=== PATIENT | female | born 1965 | race Caucasian/White ===

== ENCOUNTER → 2016-12-11 | Outpatient (CLI) | payer BC | LOC: MRI 12:17 | DX: Z01.812 Encounter for preprocedural laboratory examination (principal); H49.00 Third [oculomotor] nerve palsy, unspecified eye | CPT/HCPCS: 36415; 70553; 82565; 84520; A9577 ==

== ENCOUNTER → 2016-12-13 | Outpatient (CLI) | payer BC | LOC: CT 09:00 | DX: H49.00 Third [oculomotor] nerve palsy, unspecified eye (principal) | CPT/HCPCS: 70496; J7050; Q9963 ==

== ENCOUNTER → 2017-03-20 | Outpatient (CLI) | payer BC ==
[2017-03-20 11:10] LABS: BUN/CREATININE RATIO 25 (0-10)
== END ==
LOC: LAB 10:05
PROVIDERS: Family Medicine
DX: E11.9 Type 2 diabetes mellitus without complications (principal)
CPT/HCPCS: 36415; 80048; 80061; 80076; 81001; 83036; 84443